=== PATIENT | female | born 1995 | race Caucasian/White ===

== ENCOUNTER → 2022-06-22 10:08 | Outpatient (CLI) | payer BC, SELFPAY ==
--- NOTE | ~2022-06-22 | US_ITS ---
US breast BI complete DATE: 06/22/2022 10:34 INDICATION: Bilateral breast lumps. Fibrocystic changes of both breasts. History of bilateral reducti on mammoplasty 2 years ago. TECHNIQUE: Real-time and color flow imaging of both complete breasts including all 4 quadrants and bean bareolar areas COMPARISON: None FINDINGS: In the left breast and a palpable area near the scar from the reduction mammoplasty is a ci rcumscribed 1.8 x 1.4 x 1.8 cm sonolucent lesion with mildly thickened wall measuring up to approxima tely 7 mm. There is through transmission and posterior enhancement. A similar but much smaller approximately 3.8 x 6 mm largely sonolucent lesion is identified in the ri ght breast at 7:00 centimeters near the mammoplasty reduction scar. These are likely postoperative se romas. No suspicious mass or suspicious shadowing of either breast is detected. IMPRESSION: BI-RADS Category 2: Benign findings Reviewed, dictated and finalized at [facility]. Reviewed, dictated and finalized at [facility]. [employer]
== END ==
PROVIDERS: PCP Internal Medicine; Visit Provider Nurse Practitioner Obstetrics & Gynecology
DX: R92.8 Other abnormal and inconclusive findings on diagnostic imaging of breast (principal)
CPT/HCPCS: 76641